=== PATIENT | female | born 1985 | race Hispanic/Latino ===

== ENCOUNTER 2017-11-21 11:50 | Emergency (ER) | payer OTHER, SELFPAY ==
[2017-11-21 12:32] LABS: Bilirubin Negative (Negative); Blood, Urine Trace (Negative); Clarity CLEAR (Clear); Glucose, Urine (Dipstick) Negative (Negative); Leukocyte Trace (Negative); Nitrite Negative (Negative); Protein, Urine (Dipstick) Negative (Neg-Trace); Specific Gravity, Urine 1.013 (1.002-1.036); Urobilinogen 0.2 mg/dL (0.2-1.0)
[2017-11-21 12:35] LABS: Bacteria/HPF None Seen HPF (None Seen); Hyaline Casts/LPF 0-3 HYALINE CAST LPF (0-3 Hyaline); Squamous Epithelial 0-3 HPF (0-3); WBC/HPF 0-3 HPF (0-3)
[2017-11-21 12:51] LABS: BHCG - Serum POSITIVE (NEGATIVE); Pregs Control Background? CLEAR/WHITE (CLR/WHITE); Pregs Control Bar Appear? YES (CONTROL BAR)
--- NOTE | 2017-11-21 13:44 | ULT ---
TRANSABDOMINAL PELVIC ULTRASOUND WITH COLOR FLOW AND SPECTRAL DOPPLER: Date: 11/21/17 HISTORY: Vaginal spotting. FINDINGS: The uterus measures 12.4 x 5.3 x 6.3 cm. The right ovary measures 2.5 x 2.5 x 2.3 cm. The left ovary measures 3.3 x 2.5 x 2.3 cm. There are masses in the uterus measuring 3.2 and 2.7 cm, respectively, likely fibroids. A single live intrauterine gestation is seen with measurements corresponding to an estimated gestatio nal age of 6 weeks/5 days and DENISE at 07/12/18. The crown-rump length measures 0.78 cm. heart ra te measures 132 beats/minute. No free fluid is seen in the cul-de-sac. IMPRESSION: 1. Single live intrauterine of 6 weeks/5 days estimated gestational age and DENISE at 9. 2. Uterine fibroids. POS: [facility]
[2017-11-24 10:05] LABS: Chlamydia by PCR Not Detected (NotDetected); GC by PCR Not Detected (NotDetected)
== END 2017-11-21 14:05 | disposition home or self-care (01) ==
LOC: ERS 11:50
DX: O20.0 Threatened abortion (principal); O23.591 Infection of other part of genital tract in pregnancy, first trimester; Z79.899 Other long term (current) drug therapy; Z3A.01 Less than 8 weeks gestation of pregnancy
CPT/HCPCS: 36415; 76856; 81003; 81015; 84702; 84703; 86850; 86870; 86900; 86901; 86905; 87480; 87491; 87510; 87591; 87660; 93976; 94760

== ENCOUNTER 2018-02-20 14:39 | Outpatient (CLI) | payer OTHER ==
--- NOTE | 2018-02-20 17:54 | ULT ---
SECOND TRIMESTER OBSTETRICAL ULTRASOUND: 02/20/18 INDICATION: 20 week gestation. Evaluate anatomy. FINDINGS: There is a single live intrauterine gestation in breech presentation. The placenta is anterior in loc ation without evidence of previa. SARAH is at 14.79 cm. The cervical length was 5.5 cm. Cardiac activit y is noted at 150 beats per minute. The biparietal diameter measured 4.88 cm giving estimated gestational of 20 weeks and 6 days. The head circumference was 18.96 cm, giving an estimated gestational age of 21 weeks and 2 days. Abdominal circumference was 15.43 cm, giving an estimated gestational age of 20 weeks and 5 days. Femur length was 3.36 cm, giving an estimated gestational age of 20 weeks and 4 days. The average gestational age by ultrasound is 20 weeks and 6 days with an estimated due date of 9 whereas the gestational age based on clinical data is 19 weeks and 5 days with estimated due date o f 07/12/18. weight was 368 grams which is 91st percentile based on clinical data. The survey was slightly limited. The visualized head was difficult to evaluate but appeared wit hin normal limits. The heart, stomach, kidneys, cord insertion, bladder, and three vessel cord appear within normal limits. The spine and lips and nose were not well seen. IMPRESSION: 1. Single live intrauterine gestation with size and dates as above. 2. The lips, nose and spine were poorly evaluated. The head was also very difficult to evaluate due to positioning. Followup examination in one to two weeks may be helpful to fully complete the fet al survey. Would recommend followup evaluation of the head, spine, lips and nose for full completion. POS: [facility]
== END 2018-02-20 14:40 | disposition home or self-care (01) ==
LOC: BICULT 14:39
PROVIDERS: ATTEND Family Medicine
DX: Z34.92 Encounter for supervision of normal pregnancy, unspecified, second trimester (principal); Z3A.20 20 weeks gestation of pregnancy
CPT/HCPCS: 76805

== ENCOUNTER 2018-03-19 10:46 | Outpatient (CLI) | payer OTHER ==
--- NOTE | 2018-03-19 13:14 | ULT ---
OB ULTRASOUND: HISTORY: Followup for evaluation of anatomy, specifically the spine, head, nose, and lip regions. COMPARISON: A 02/20/2018 study. FINDINGS: Real-time imaging of the pelvis was performed. This shows a single viable intrauterine . T he fetus is in more of a transverse lie at the head on the maternal right side. The placenta is ante rior in location without evidence of previa. Cervical canal length is 4.8 cm. Amniotic fluid is galileo ged to be adequate for this stage of . Review of anatomy shows no anomalies detected. The face region and spine appear normal o n this examination. measurements are as follows: BPD 5.9 cm, 24 weeks 0 days Head circumference 22.5 cm, 24 weeks 4 days Abdominal circumference 20.9 cm, 25 weeks 3 days Femur length 4.4 cm, 24 weeks 3 days IMPRESSION: 1. Single viable intrauterine in a transverse lie. Overall measurements corresponding to a gestational age of 24 weeks 4 days, estimated date of delivery 07/05/2018. 2. Placenta which is anterior in location without evidence of previa. 3. Completion of anatomy survey was performed. No anomalies were detected. POS: [facility]
== END 2018-03-19 10:47 | disposition home or self-care (01) ==
LOC: ULT 10:46
PROVIDERS: ATTEND Family Medicine
DX: Z34.92 Encounter for supervision of normal pregnancy, unspecified, second trimester (principal); Z3A.24 24 weeks gestation of pregnancy
CPT/HCPCS: 76805

== ENCOUNTER 2018-03-26 16:46 | Outpatient (CLI) | payer OTHER ==
[2018-03-26 17:29] LABS: #Basophils 0.1 thou/uL (0.0-0.2); #Eosinphils 0.1 thou/uL (0.0-0.7); #Lymphocytes 1.7 thou/uL (1.20-3.40); #Monocytes 0.4 thou/uL (0.11-0.59); #Neutrophils 5.8 thou/uL (1.40-6.50); %Basophils 0.8 % (0.0-1.0); %Eosinophils 1.8 % (0.0-10.0); %Lymphocytes 20.8 % (21.0-51.0); %Monocytes 4.7 % (0.0-10.0); %Neutrophils 71.9 % (42.0-75.0); Hemoglobin 12.9 g/dL (12.0-16.0); Mean Corpuscular HGB CONC 34.4 g/dL (32.0-36.0); Mean Corpuscular Hemoglobin 31.3 pg (27.0-31.0); Mean Platelet Volume 7.7 fL (7.4-10.4); Platelet Count 209 thou/uL (130-400); RBC Distribution Width 12.2 % (11.5-14.5); Red Blood Cell (RBC) Count 4.12 mill/uL (4.20-5.40); White Blood Cell (WBC) Count 8.1 thou/uL (4.8-10.8)
[2018-03-26 17:44] LABS: Anion Gap 12 mmol/L (10-20); BUN (Urea Nitrogen) 5 mg/dL (7.0-18.7); Calc. Creatinine Clearance 0 mL/min (70-130); Carbon Dioxide 21 mmol/L (22-29); Chloride 109 mmol/L (98-107); Estimated GFR-MDRD Greater than 90; Glucose 81 mg/dL (70-105); Sodium 138 mmol/L (136-145)
== END 2018-03-26 16:47 | disposition home or self-care (01) ==
LOC: LABBT 16:46
PROVIDERS: ATTEND Specialist
DX: Z01.812 Encounter for preprocedural laboratory examination (principal); K43.2 Incisional hernia without obstruction or gangrene
CPT/HCPCS: 80048; 85025

== ENCOUNTER 2018-03-28 08:18 | Day surgery (SDC) | payer OTHER ==
[2018-03-26 16:54] VITALS: BMI 38.0
[2018-03-28] MEDS ORDERED: Famotidine/PF 20 mg/2ml Vial ONE (10:17)
[2018-03-28] MEDS ORDERED: Bupivacaine/Epinephrine 0.25% 30 ML VIAL ONE (10:51)
[2018-03-28] MEDS ORDERED: Fentanyl 100 MCG/2 ML VIAL ONE ×2 (10:57→12:52)
--- NOTE | 2018-03-29 15:13 | OP ---
DATE OF PROCEDURE: 03/28/2018 PREOPERATIVE DIAGNOSIS: Ventral incisional hernia in right epigastrium in a woman who is 26 weeks pr egnant. POSTOPERATIVE DIAGNOSIS: Ventral incisional hernia in right epigastrium in a woman who is 26 weeks p regnant. OPERATION PERFORMED: Repair of ventral incisional hernia with mesh using an 8 [facility]: Dhruv Arzate M.D. ANESTHESIA: General with laryngeal mask airway. INDICATIONS: The patient is a 32-year-old female. She presented with an obvious and enlarg ing hernia from a prior laparoscopic cholecystectomy performed elsewhere. With Valsalva, she had a l arge hernia sac with an external component that approach 8-9 cm in diameter. I recommended open repa ir with mesh at this time due to the potential for complications that could occur later in her pregna ncy. DESCRIPTION OF OPERATION: Informed consent was obtained. The patient was taken to the operating jian m where general anesthesia was obtained with the patient in supine position. Abdomen was prepped wit h ChloraPrep and draped in sterile fashion. Local anesthetic was infiltrated using 0.25% Marcaine wi th epinephrine. The area of the hernia had been marked preoperatively. The fairly large epigastric incision was reopened. Dissection was carried through skin and subcutaneous tissue. I very quickly encountered the hernia sac. This was carefully dissected down to the fascial defect. I dissected th e fascia on the anterior aspect as well as the entire fascial border. I was able to reduce the addy nts intra-abdominal. The posterior aspect of the fascia was dissected primarily using blunt dissecti on, maintaining hemostasis with electrocautery. The transverse diameter of the defect was almost 5 c m. I therefore selected 8 cm Ventralex mesh patch. This was placed in the preperitoneal space where it was unfurled in the usual fashion and pulled snug against the posterior aspect of the fascia. Th e mesh tails were secured to the anterior fascia superiorly and inferiorly using single interrupted s utures of 0 Prolene. Lateral aspects of the defect were closed with 0 Prolene suture, which incorpor ated bites of the anterior leaflet of the mesh patch. The defect was well closed over the mesh. The wound was irrigated and hemostasis was meticulous. The wound was closed in layers using 3-0 Vicr yl to approximate the deep layer, attempting to close the space. Skin edges approximated with 4 -0 Monocryl subcuticular suture and Dermabond was placed externally. There were no complications. T he patient tolerated the procedure well and was taken to recovery room in stable condition.
== END 2018-03-28 14:10 | disposition home or self-care (01) ==
LOC: SDC 08:18
PROVIDERS: ATTEND Specialist
PROC: 0WUF0JZ Supplement Abdominal Wall with Synthetic Substitute, Open Approach (ICD-10-PCS; principal; 2018-03-28)
DX: O99.612 Diseases of the digestive system complicating pregnancy, second trimester (principal); K43.2 Incisional hernia without obstruction or gangrene; Z3A.26 26 weeks gestation of pregnancy; Z79.899 Other long term (current) drug therapy
CPT/HCPCS: 96374; C1781; J0131; J3010; S0028

== ENCOUNTER 2018-06-27 06:00 | Inpatient (IN) | payer OTHER ==
--- NOTE | 2018-06-26 20:45 | HP ---
HISTORY OF PRESENT ILLNESS: This is a 32-year-old [place] female, G7, P5 at 39 weeks gestation with the EDC of 07/04/2018. The patient's course has been uncomplicated. She has been having occasional contractions for the past week. Her previous office exam revealed a cervix of 3 cm dilated, thick and high, vertex presentation. PAST MEDICAL HISTORY: Includes history of syphilis, which was treated. Incisional hernia, which was recently repaired during this . ALLERGIES: NONE. PAST SURGICAL HISTORY: Cholecystectomy in 2001. On 03/28/2018, open incisional hernia repair with mesh by Dr. Arzate. Spontaneous vaginal delivery x5. FAMILY HISTORY: Mother with diabetes, hypertension, and stroke, and maternal grandmother with some kind of cancer. SOCIAL HISTORY: She is . She has I believe 4 kids at home. She is a homemaker. She does not smoke. She does not drink. REVIEW OF SYSTEMS: As above. PHYSICAL EXAMINATION: VITAL SIGNS: Stable, afebrile. GENERAL: No acute distress. HEENT: Clear. HEART: Regular rate and rhythm. LUNGS: Clear. ABDOMEN: Gravid. : Cervix 3 cm, 50% high vertex from office exam. EXTREMITIES: With no edema. LABORATORY DATA: GBS negative. Fasting blood sugar was 91, 3-hour was abnormal. A1c was 4.9. HIV negative. GC, chlamydia negative. Pap smear normal. HPV negative. Thyroid normal. HIV negative. Hepatitis B negative. Rubella immune. Urine culture negative. A positive blood type. Syphilis titer 1 to 4. ASSESSMENT: 1. A 39-week intrauterine . 2. Gestational diabetes, on metformin 500 daily. Fasting blood sugars less than 100. 3. Grand multip. 4. History of rapid delivery. PLAN: 1. Pitocin induction in the a.m. 2. Routine L and D orders. 3. Routine anesthesia. Job ID: [id number]
[2018-06-27] MEDS: Lactated Ringer's 1,000 ML IV SCH ×3 (07:20→12:41)
[2018-06-27] MEDS ORDERED: NS w/ Oxytocin 10 units 500 ML ONE (07:32)
[2018-06-27] MEDS ORDERED: Ondansetron PF 4 MG/2 ML Vial IVP PRN ×4 (07:39→21:31)
[2018-06-27] MEDS ORDERED: HYDROcodone/Acetaminophen 5/325 mg Tablet PO PRN ×2 (07:39→21:31)
[2018-06-27] MEDS ORDERED: NS w/ Oxytocin 10 units 500 ML IV SCH (07:39)
[2018-06-27] MEDS ORDERED: NS / Oxytocin 40 units/1000ml 1,000 ML IV PRN (07:39)
[2018-06-27] MEDS ORDERED: Ibuprofen 800 MG TAB PO PRN (07:39)
[2018-06-27] MEDS ORDERED: Promethazine HCl 25 MG/ML VIAL IM PRN ×3 (07:39→19:11)
[2018-06-27] MEDS ORDERED: Lidocaine 1% (PF) 30 ML VIAL SC PRN (07:39)
[2018-06-27 07:46] VITALS: BMI 39.8
[2018-06-27 08:36] LABS: Mean Corpuscular HGB CONC 35.1 g/dL (32.0-36.0); Mean Corpuscular Hemoglobin 31.5 pg (27.0-31.0); Mean Corpuscular Volume 89.8 fL (78.0-98.0); Mean Platelet Volume 9.4 fL (7.4-10.4); Platelet Count 157 thou/uL (130-400); RBC Distribution Width 12.7 % (11.5-14.5); Red Blood Cell (RBC) Count 4.14 mill/uL (4.20-5.40); White Blood Cell (WBC) Count 7.9 thou/uL (4.8-10.8)
[2018-06-27 09:16] LABS: HBSAg Index 0.37 S/CO (0-0.99); Hep B Surf Ag Non-Reactive S/CO (NonReactive)
[2018-06-27] MEDS ORDERED: Fentanyl 4 mcg/Bup 0.1% Cadd 100 ML ONE ×2 (09:47→16:23)
[2018-06-27] MEDS ORDERED: Lidocaine 1.5% w/Epi 1:200K 30 ML VIAL (Epid Use) ONE (10:04)
[2018-06-27] MEDS ORDERED: NS / Oxytocin 40 units/1000ml 1,000 ML ONE (11:32)
[2018-06-27] MEDS ORDERED: Lidocaine 1% (PF) 30 ML VIAL ONE (11:32)
[2018-06-27 11:52] LABS: Syphilis Antibody INDETERMINATE (Nonreactive)
[2018-06-27] MEDS ORDERED: ePHEDrine/0.9% NaCl/PF SYRINGE 50 mg/10 ml SLOW IVP PRN (12:34)
[2018-06-27] MEDS ORDERED: Naloxone HCl 0.4 mg/ml Vial IVP PRN ×4 (12:34→19:11)
[2018-06-27] MEDS ORDERED: Acetaminophen 325 MG TAB PO PRN (12:34)
[2018-06-27] MEDS ORDERED: Eucerin (Mineral Oil/Petrolatum,White) 30 gm Jar TOP PRN ×2 (12:34→19:11)
[2018-06-27] MEDS ORDERED: Lactated Ringer's 500 ML IV PRN (12:34)
[2018-06-27] MEDS ORDERED: diphenhydrAMINE 50 MG/ML VIAL IVP PRN ×2 (12:34→19:11)
[2018-06-27] MEDS ORDERED: Fentanyl 4 mcg/Bupivacaine 0.1% Cassette 100 ML EPIDURAL SCH (12:45)
[2018-06-27] MEDS ORDERED: Communication Order-Pharmacy FS SCH ×2 (12:45→19:15)
[2018-06-27] MEDS ORDERED: Ketorolac Tromethamine 30 MG/ML VIAL ONE ×2 (13:20→19:11)
[2018-06-27] MEDS ORDERED: Carboprost 250 MCG/ML AMP ONE (14:30)
[2018-06-27] MEDS ORDERED: Misoprostol 200 MCG TAB ONE (17:11)
[2018-06-27] MEDS ORDERED: Bicitra 30 ML UDCUP ONE (17:59)
[2018-06-27] MEDS ORDERED: Ampicillin 2 GM in Sodium Chloride 0.9% 100 ML IVPB SCH (18:15)
[2018-06-27] MEDS ORDERED: Acetaminophen 1,000 MG in Premix Bag 1 BAG IVPB SCH (18:15)
[2018-06-27] MEDS ORDERED: Lidocaine 2% 10 ML INJ ONE (18:22)
[2018-06-27] MEDS ORDERED: Azithromycin 500 MG in Sodium Chloride 0.9% 250 ML 250 ML IVPB ONE (18:26)
[2018-06-27] MEDS ORDERED: Oxytocin 10 UNITS/ML VIAL ONE (18:47)
[2018-06-27] MEDS ORDERED: PHENYLEPHRINE-NS 100 MCG/ML 10 ML SYRINGE ONE (18:48)
[2018-06-27] MEDS ORDERED: Meperidine HCl/PF 25 MG/ML VIAL SLOW IVP PRN (19:11)
[2018-06-27] MEDS ORDERED: HYDROmorphone 2 MG/ML VIAL SLOW IVP PRN (19:11)
[2018-06-27] MEDS ORDERED: Promethazine HCl 25 MG SUPP PR PRN (19:11)
[2018-06-27] MEDS ORDERED: Naloxone HCl 0.4 mg/ml Vial IV PRN (19:11)
[2018-06-27] MEDS ORDERED: L&D-Morphine 4 MG/ML VIAL SLOW IVP PRN (19:11)
[2018-06-27] MEDS ORDERED: Ondansetron HCl/PF 4 MG/2 ML Vial IVP PRN (19:11)
[2018-06-27] MEDS ORDERED: MORPHINE 5 MG/10 ML PF VIAL ONE (19:12)
[2018-06-27 19:14] LABS: Actual Bicarbonate (HCO3a) 20.7 mEq/L (22-28); Base Excess (BEa) -7.2 mEq/L (-2.0 to +3.0)
--- NOTE | 2018-06-27 19:25 | PDOC.EVN ---
Event Note - Event Note Event Note: OBGYN [employer] CS Assist note I was asked by Dr Luz Marina Mullen to assist with this multip in labor, first CS. She has arrest of descent at second stage, and temp concerning for IAI. I was scrubbed and assisted with this primary LTCS via pfannenstiel. ZMAX given intraop in addition to the other ABX ordered. Uterus closed in 2 laers She will continue on A/G/C ABX as she had labor followed by CS. Please see dictation by Dr Mullen. My team was asked to round on this patient as Luz Marina Mullen will be out of town.
--- NOTE | 2018-06-27 21:08 | PDOC.EVN ---
Event Note - Event Note Event Note: I was notified that the patient was a GDM patient using metformin antepartum. I have ordered fasting dsticks. I have aslo strted her back on her nightly zoloft. I will check a dtick now as well.
[2018-06-27] MEDS ORDERED: Milk Of Magnesia 30 ML UDCUP PO PRN (21:31)
[2018-06-27] MEDS ORDERED: NS / Oxytocin 40 units/1000ml 1,000 ML IV SCH (21:31)
[2018-06-27] MEDS ORDERED: Adacel (T-DAP) 0.5 ML SYRINGE IM ONE (21:31)
[2018-06-27] MEDS ORDERED: Methylergonovine 0.2 MG/ML VIAL IM PRN (21:31)
[2018-06-27] MEDS ORDERED: Benzocaine/Menthol 20-0.5% 60 ML CAN TOP PRN (21:31)
[2018-06-27] MEDS ORDERED: Misoprostol 200 MCG TAB VAG PRN (21:31)
[2018-06-27] MEDS ORDERED: Bisacodyl 10 MG SUPP PR PRN (21:31)
[2018-06-27] MEDS ORDERED: Gentamicin Sulfate 80 MG in Premix Bag 1 BAG IVPB SCH (22:00)
[2018-06-27] MEDS: Clindamycin/D5W 900 MG in Premix Bag 1 BAG IVPB SCH (22:39)
[2018-06-28] MEDS ORDERED: Acetaminophen 1,000 MG in Premix Bag 1 BAG IVPB PRN (00:30)
[2018-06-28] MEDS ORDERED: Ketorolac Tromethamine 30 MG/ML VIAL IVP PRN (03:00)
[2018-06-28] MEDS: Gentamicin Sulfate 80 MG in Premix Bag 1 BAG IVPB SCH ×3 (03:48→20:50)
[2018-06-28] MEDS: Docusate Calcium (SURFAK) 240 MG CAP PO SCH ×3 (04:13→20:48)
[2018-06-28] MEDS: Ferrous Sulfate 325 MG TAB PO SCH ×3 (04:14→17:48)
--- NOTE | 2018-06-28 04:45 | CON ---
DATE OF CONSULTATION: SUBJECTIVE: The patient has been pushing for approximately 1 hour. She has made very little descent. Baby is exhibiting the turtle sign. Mother is also 5 foot 0 inch, 200 pounds. She is a G7, P5. She also has a temperature of 101. Ampicillin has been given, gentamicin is in process as well as Tylenol 1 g IV. OBJECTIVE: VITAL SIGNS: Temperature 98. ABDOMEN: Soft. Contractions q.3 minutes. Cervix is complete, vertex is a -2 station and somewhat ballotable. heart tones are fluctuates from the 120s to 160s at this time. LABORATORY DATA: Initial white count 7.9, hemoglobin and hematocrit 13 and 37. ASSESSMENT: 1. 39-week intrauterine . 2. Failure to descend, rule out cephalopelvic disproportion, rule out occiput posterior. 3. Chorioamnionitis. 4. Gestational diabetes, well controlled. PLAN: 1. Proceed with primary low-transverse section. 2. Ampicillin, gentamicin, and Tylenol IV. 3. Routine preop orders. Job ID: [id number]
--- NOTE | 2018-06-28 04:56 | OP ---
DATE OF PROCEDURE: 06/27/2018 PREOPERATIVE DIAGNOSES: 1. 39-week intrauterine . 2. Occiput posterior. 3. Cephalopelvic disproportion. 4. Chorioamnionitis. 5. Gestational diabetes. 6. Failed elective Pitocin induction. POSTOPERATIVE DIAGNOSES: 1. 39-week intrauterine . 2. Occiput posterior. 3. Cephalopelvic disproportion. 4. Chorioamnionitis. 5. Gestational diabetes. 6. Failed elective Pitocin induction. 7. Confirmation of occiput posterior. PROCEDURE PERFORMED: Primary low transverse section. GAS DISTRIBUTION AND EMERGENCY CLERK: Preston Blount MD ANESTHESIA: Epidural. DESCRIPTION OF PROCEDURE: The patient was taken to the operating room and placed in supine position. Abdomen was prepped and draped sterilely. A Pfannenstiel incision was made. Subcu was dissected down to the fascia. Fascia was entered without incident. Peritoneum was opened by blunt dissection. Low-transverse uterine incision was made. Marked edema was noted. Delivered the baby from the occiput posterior position without difficulty. Baby did breathe and cry vigorously upon delivery. Cord gases were obtained. Cord blood was obtained. Placenta was delivered without difficulty. The uterus was closed in 2 layers of #1 Monocryl. Abdomen was evacuated of all clots. Peritoneum was closed with 2-0 chromic. The fascia was closed with 0 Vicryl and the subcu was closed with 2-0 chromic and the skin was closed with erik. Preliminary estimated blood loss is 800 mL. Gus team was present. Mother is doing well. Methergine and Pitocin were given postop. Ampicillin, gentamicin, and Zithromax was given preop. Job ID: [id number]
[2018-06-28] MEDS: Clindamycin/D5W 900 MG in Premix Bag 1 BAG IVPB SCH ×3 (05:20→22:18)
[2018-06-28] MEDS ORDERED: Sodium Chloride 0.9% 20 ML ONE (05:33)
--- NOTE | 2018-06-28 06:00 | PDOC.PP ---
Post Progress Note Post Day #: 1 Subjective: States still some carpel tunnel feeling in her right hand from before. Feeling well otherwise. Pain controlled well PO intake tolerated: yes Flatus: yes Ambulation: yes Vital Signs (12 hours) Temp Pulse Resp BP Pulse Ox 06/28/18 04:00 98.3 F 67 20 108/51 L 06/28/18 02:00 20 06/28/18 00:00 98.6 F 72 18 115/63 06/27/18 22:50 98.3 F 73 18 120/56 L 06/27/18 22:00 98.5 F 65 18 111/55 L 97 06/27/18 21:50 98.5 F 65 18 111/55 L 97 Weight Weight 204 lb - Physical Examination General: NAD Cardiovascular: no m/r/g Respiratory: clear to auscultation bilaterally Abdominal: + bowel sounds, lochia, no distention, appropriately TTP Extremities: negative homans (B) Deviation from normal: Dressing in place (stpales on incision at time of surgery ) Neurological: no gross focal deficits Psychiatric: A&Ox3, normal affect Result Diagrams: 06/27/18 07:05 Additional Labs: Post Labs Blood Type A POSITIVE 06/27/18 07:05 Hep Bs Antigen Non-Reactive S/CO (NonReactive) 06/27/18 07:05 (1) delivery delivered Code(s): O82 - ENCOUNTER FOR DELIVERY WITHOUT INDICATION Status: Acute (2) Gestational diabetes Code(s): O24.419 - GESTATIONAL DIABETES MELLITUS IN , UNSP CONTROL Status: Acute - Assessment/Plan POD 1 from primary CS for FTP at second stage (arrest of descent); on A/G/ Clinda. HX GDM and was on metformin...fasting DSTICKS Q AM PLAN: I told her metforfmin would stop PP and we would recommend a GTT at 6-8 weeks PP. Follow fastings here and at home. Ambulate today. OOB to chair as well, and continue SCDs in bed. Afebrile currently...we will continue ABX for now and possibly stop tomorrow POD2 if afebrile.
[2018-06-28] MEDS: Ampicillin 2 GM in Sodium Chloride 0.9% 100 ML IVPB SCH ×4 (06:03→17:48)
[2018-06-28 06:39] LABS: Hemoglobin 11.2 g/dL (12.0-16.0); Mean Corpuscular HGB CONC 35.6 g/dL (32.0-36.0); Mean Corpuscular Hemoglobin 32.4 pg (27.0-31.0); Platelet Count 125 thou/uL (130-400); RBC Distribution Width 12.7 % (11.5-14.5); Red Blood Cell (RBC) Count 3.45 mill/uL (4.20-5.40); White Blood Cell (WBC) Count 9.2 thou/uL (4.8-10.8)
[2018-06-28] MEDS: Prenatal Vitamin 1 TAB PO SCH (10:01)
[2018-06-28] MEDS: HYDROcodone/Acetaminophen 5/325 mg Tablet PO PRN ×2 (10:03→21:03)
[2018-06-28] MEDS: Ibuprofen 800 MG TAB PO PRN ×2 (13:45→21:03)
[2018-06-29] MEDS: Ampicillin 2 GM in Sodium Chloride 0.9% 100 ML IVPB SCH ×2 (00:03→06:12)
[2018-06-29] MEDS: Gentamicin Sulfate 80 MG in Premix Bag 1 BAG IVPB SCH (03:37)
[2018-06-29] MEDS: Ibuprofen 800 MG TAB PO PRN ×2 (05:06→20:18)
[2018-06-29] MEDS: Clindamycin/D5W 900 MG in Premix Bag 1 BAG IVPB SCH (05:06)
[2018-06-29] MEDS: HYDROcodone/Acetaminophen 5/325 mg Tablet PO PRN ×4 (05:10→20:19)
[2018-06-29] MEDS: Ferrous Sulfate 325 MG TAB PO SCH ×2 (07:29→16:19)
--- NOTE | 2018-06-29 07:41 | PDOC.PP ---
Post Progress Note Post Day #: 2 Subjective: Doing well, no complaints. PO intake tolerated: yes Flatus: yes Ambulation: yes Vital Signs (12 hours) Temp Pulse Resp BP BP Pulse Ox 06/29/18 03:30 97.8 F 67 16 137/83 06/29/18 00:00 98.1 F 77 16 113/59 L 06/28/18 19:50 98.2 F 81 18 113/61 98 Weight Weight 204 lb - Physical Examination Respiratory: non-labored breathing Abdominal: lochia (normal), no distention, appropriately TTP Fundus firm & at: below umbilicus Extremities: negative homans (B) Skin: CS incision dry & intact, no rash Neurological: no gross focal deficits Psychiatric: A&Ox3, normal affect Result Diagrams: 06/28/18 06:08 Additional Labs: Post Labs Blood Type A POSITIVE 06/27/18 07:05 Hep Bs Antigen Non-Reactive S/CO (NonReactive) 06/27/18 07:05 (1) delivery delivered Code(s): O82 - ENCOUNTER FOR DELIVERY WITHOUT INDICATION Status: Acute (2) Gestational diabetes Code(s): O24.419 - GESTATIONAL DIABETES MELLITUS IN , UNSP CONTROL Status: Acute - Assessment/Plan Doing well POD2. Afebrile since delivery. Will d/c antibiotics today. Anticipate d/c tomorrow.
[2018-06-29] MEDS: Docusate Calcium (SURFAK) 240 MG CAP PO SCH ×2 (10:09→20:18)
[2018-06-29] MEDS: Prenatal Vitamin 1 TAB PO SCH (10:09)
[2018-06-30] MEDS: HYDROcodone/Acetaminophen 5/325 mg Tablet PO PRN ×2 (05:25→09:05)
[2018-06-30] MEDS: Ibuprofen 800 MG TAB PO PRN (05:25)
--- NOTE | 2018-06-30 07:25 | PDOC.PP ---
Post Progress Note Post Day #: 3 Subjective: Patient states she is feeling well today. Ambulating without difficulty. She denies N/V/D or pain with PO intake. She has had less bleeding than a regular menses. States she feels ready to go home today. PO intake tolerated: yes Flatus: yes Ambulation: yes Vital Signs (12 hours) Temp Pulse Resp BP BP Pulse Ox 06/29/18 23:11 98.0 F 80 16 108/61 06/29/18 20:00 98.2 F 93 16 152/70 H 98 Weight Weight 92.533 kg - Physical Examination General: NAD Cardiovascular: no m/r/g, RRR Respiratory: clear to auscultation bilaterally, non-labored breathing Abdominal: + bowel sounds, no distention, appropriately TTP Fundus firm & at: 2cm below fundus Extremities: negative homans (B) Skin: CS incision dry & intact (erik), no rash Neurological: no gross focal deficits Psychiatric: A&Ox3, normal affect Result Diagrams: 06/28/18 06:08 Additional Labs: Post Labs Blood Type A POSITIVE 06/27/18 07:05 Hep Bs Antigen Non-Reactive S/CO (NonReactive) 06/27/18 07:05 (1) care and examination Code(s): Z39.2 - ENCOUNTER FOR ROUTINE FOLLOW-UP Status: Acute - Assessment/Plan # PPD 3 s/p c/s 2/2 chorio - GDM, POC glucose <126 - s/p amp/gent 2/2 chorioamionitis, afebrile >24 hours - VSS - pain well controlled - will d/c to f/u in clinic in 1-2 days for staple removal Addendum - Attending - Attending Attestation Date/Time: 07/01/18 0910 I personally evaluated the patient and discussed the management with Dr. Durbin. I agree with the History, Examination, Assessment and Plan documented above with any addition or exceptions noted below.
[2018-06-30] MEDS: Ferrous Sulfate 325 MG TAB PO SCH (07:35)
[2018-06-30 08:29] VITALS: BP 115/54; TEMP 97.7
[2018-06-30] MEDS: Prenatal Vitamin 1 TAB PO SCH (09:05)
[2018-06-30] MEDS: Docusate Calcium (SURFAK) 240 MG CAP PO SCH (09:05)
== END 2018-06-30 10:50 | disposition home or self-care (01) | DRG 786 ==
LOC: L&D 06:16 → EEVIPCON 06:16 → 3SW 22:17
PROVIDERS: ADMIT Family Medicine; ATTEND Family Medicine
PROC: 10D00Z1 Extraction of Products of Conception, Low, Open Approach (ICD-10-PCS; principal; 2018-06-27)
DX: O33.9 Maternal care for disproportion, unspecified (principal); O41.1230 Chorioamnionitis, third trimester, not applicable or unspecified; O24.425 Gestational diabetes mellitus in childbirth, controlled by oral hypoglycemic drugs; O32.4XX0 Maternal care for high head at term, not applicable or unspecified; Z3A.39 39 weeks gestation of pregnancy; Z37.0 Single live birth; Z90.49 Acquired absence of other specified parts of digestive tract; Z98.890 Other specified postprocedural states
CPT/HCPCS: 36415; 36416; 51702; 82805; 85027; 86593; 86780; 86850; 86870; 86900; 86901; 86922; 87340; 90715; J0131; J0290; J0456; J1200; J1580; J1885; J2001; J2270; J2590; J3490; J7050